=== PATIENT | female | born 1960 | race Caucasian/White ===

== ENCOUNTER 2017-02-11 06:08 | Day surgery (SDC) | payer OTHER ==
[~2017-02-11] VITALS: Ht 157.5 cm; Wt 63.6 kg
[~2017-02-11 06:08] MED LIST: CeFAZolin 2 GM/DEXTROSE 50 ML IV ONE; RINGERS SOLUTION,LACTATED 1,000 ML IV ONE
[2017-02-11] MEDS ORDERED: EPHEDrine SULFATE 50 MG/ML VIAL IM ONE (06:09)
[2017-02-11] MEDS ORDERED: OXYTOCIN 10 UNITS/ML VIAL IM ONE (06:09)
[2017-02-11] MEDS ORDERED: SUCCINYLCHOLINE CHLORIDE 20 MG/ML 10 ML VIAL IVP ONE (06:09)
[2017-02-11] MEDS ORDERED: PROPOFOL 1% 20 ML VIAL IVP ONE (06:09)
[2017-02-11] MEDS ORDERED: MIDAZOLAM HCL 2 MG/2 ML VIAL IVP ONE (06:09)
[2017-02-11] MEDS ORDERED: 0.9% SODIUM CHLORIDE 10 ML VIAL IVP ONE (06:09)
[2017-02-11] MEDS ORDERED: FentaNYL CITRATE-PF 100 MCG/2 ML VIAL IVP ONE (06:09)
[2017-02-11] MEDS ORDERED: ONDANSETRON HCL 4 MG/2 ML VIAL IVP ONE (06:09)
[2017-02-11] MEDS ORDERED: LIDOCAINE HCL 2%/EPI 1:200,000/PF 10 ML VIAL ONE ×2 (06:48→07:03)
[2017-02-11] MEDS ORDERED: BUPIVACAINE HCL/PF 0.5% 30 ML VIAL ONE (06:49)
[2017-02-11] MEDS ORDERED: CeFAZolin 2 GM/DEXTROSE 50 ML IV ONE (08:00)
[2017-02-11] MEDS ORDERED: HYDROCODONE/ACETAMINOPHEN 5-325 MG TABLET PO PRN (08:30)
[2017-02-11] MEDS ORDERED: HYDROmorphone 2 MG/ML SYRINGE IVP PRN (08:30)
[2017-02-11] MEDS ORDERED: ONDANSETRON HCL 4 MG/2 ML VIAL IVP PRN (08:30)
[2017-02-11] MEDS ORDERED: MEPERIDINE-PF 25 MG/ML SYRINGE IVP PRN (08:30)
[2017-02-11] MEDS ORDERED: ACETAMINOPHEN 500 MG TABLET PO PRN (08:30)
[2017-02-11] MEDS ORDERED: IBUPROFEN 600 MG TABLET PO PRN (08:30)
[2017-02-11] MEDS ORDERED: HYDROmorphone 2 MG/ML SYRINGE ONE (09:07)
[2017-02-11] MEDS ORDERED: RINGERS SOLUTION,LACTATED 500 ML IV ONE (09:17)
[2017-02-11] MEDS ORDERED: HYDROCODONE/ACETAMINOPHEN 5-325 MG TABLET ONE (09:45)
== END 2017-02-11 11:00 | disposition home or self-care (01) ==
LOC: SURGERY 06:08
PROVIDERS: ATTEND Surgery
DX: K43.6 Other and unspecified ventral hernia with obstruction, without gangrene (principal); K21.9 Gastro-esophageal reflux disease without esophagitis; Z98.890 Other specified postprocedural states; Z87.442 Personal history of urinary calculi
CPT/HCPCS: 88302; 93005; J0330; J0690; J1170; J2250; J2405; J2590; J2704; J3010; J3490; J7120